=== PATIENT | male | born 1995 | race African-American/Black ===

== ENCOUNTER 2016-09-14 19:53 | Emergency (ER) | payer BC ==
[2016-09-14 20:16] VITALS: BP 134/74
== END 2016-09-14 22:45 | disposition home or self-care (01) ==
LOC: ED 19:53
DX: S93.691A Other sprain of right foot, initial encounter (principal); X37.1XXA Tornado, initial encounter; Y93.55 Activity, bike riding; Y92.89 Other specified places as the place of occurrence of the external cause; Y99.8 Other external cause status
CPT/HCPCS: J1885